=== PATIENT | male | born 1980 | race American Indian/Alaskan Native ===

== ENCOUNTER 2016-12-04 11:15 | Emergency (ER) | payer OTHER ==
[2016-12-04 12:39] LABS: Basophils % (Auto) 0.5 % (0.0-1.8); Eosinophils % (Auto) 0.6 % (0.0-4.3); Mean Corpuscular HGB Conc 31 % (32-34); Mean Corpuscular Volume 78 fl (84-94); Platelet Count 172 K/mm3 (140-440); Red Blood Count 5.49 M/mm3 (3.65-5.03); Red Cell Distribution Width 14.2 % (13.2-15.2); White Blood Count 4.9 K/mm3 (4.5-11.0)
[2016-12-04 12:42] LABS: Hematocrit 42.5 % (35.5-45.6); Hemoglobin 13.2 gm/dl (11.8-15.2); Mean Corpuscular Hemoglobin 24 pg (28-32)
[2016-12-04 13:02] LABS: Anion Gap 14 mmol/L; Blood Urea Nitrogen 12 mg/dL (9-20); Calcium 9.2 mg/dL (8.4-10.2); Carbon Dioxide 27 mmol/L (22-30); Chloride 104.4 mmol/L (98-107); Glucose 87 mg/dL (75-100); Potassium 3.8 mmol/L (3.6-5.0); Sodium 142 mmol/L (137-145)
[2016-12-04 13:23] LABS: Urine Drugs of Abuse Note Disclamer
[2016-12-04 13:37] LABS: Bilirubin,Urine NEG (Negative); Blood,Urine NEG (Negative); Ketones,Urine NEG (Negative); Leukocyte Esterase,Urine NEG (Negative); Mucus,Urine FEW /HPF; Nitrite,Urine NEG (Negative); Protein,Urine <15 mg/dL mg/dL (Negative)
[2016-12-04] MEDS ORDERED: FIORICET PO ONE (20:00)
[2016-12-04] MEDS ORDERED: NORCO 10/325 PO ONE (20:00)
--- NOTE | 2016-12-04 20:43 | XRay Report ---
FINAL REPORT EXAM: XR CHEST 1V AP HISTORY: sob TECHNIQUE: Single-view chest PRIORS: None. FINDINGS: The left costophrenic angle is cropped from the topography of the image.No focal consolidations are seen in the lungs.The cardiomediastinal silhouette is within normal limits for size and contour. No acute osseous abnormality is identified. IMPRESSION: 1. No definite radiographic evidence of acute cardiopulmonary disease. 2. No focal infiltrate is identified.
--- NOTE | 2016-12-04 21:26 | Emergency Department Report ---
ED General Adult HPI - General Chief complaint: Pain General Stated complaint: WEAKNESS/MIGRAINES/TATYANA Time Seen by Provider: 12/04/16 19:52 Source: patient Mode of arrival: Ambulatory Limitations: No Limitations - History of Present Illness Initial comments: Patient is a 36-year-old male with no significant past medical history who presents with migraines and body aches. Patient states that symptoms have been going on for a total of 2 weeks. His headache is located on the front portion of his head noise makes symptoms worse quite makes it better. He states that his headaches similar to the migraines he has had in the past. The migraine is an 8 out of 10 and is constant it is a throbbing-like pain. Patient states that he's been having shortness of breath with exertion. And low-grade temperature. Severity scale (0 -10): 10 - Related Data Previous Rx's Medication Instructions Recorded Last Taken Type Cyclobenzaprine [Flexeril] 10 mg PO TID PRN #12 tablet 03/01/13 Unknown Rx Hydrocodone Bit/Acetaminophen 1 each PO Q4-6H #12 tablet 03/01/13 Unknown Rx [Lortab 5-500 Tablet] Ibuprofen [Motrin] 800 mg PO TID PRN #25 tablet 03/01/13 Unknown Rx Butalb/Acetamin/Caff 50-325-40 1 tab PO Q6HR PRN #30 tab 12/04/16 Unknown Rx [Fioricet] Allergies Allergy/AdvReac Type Severity Reaction Status Date / Time No Known Allergies Allergy Unverified 03/01/13 01:38 ED Review of Systems ROS: Stated complaint: WEAKNESS/MIGRAINES/TATYANA Other details as noted in HPI Constitutional: denies: chills, fever Eyes: denies: eye pain, eye discharge, vision change ENT: throat pain Respiratory: SOB with exertion. denies: cough, shortness of breath, wheezing Cardiovascular: denies: chest pain, palpitations Endocrine: no symptoms reported Gastrointestinal: denies: abdominal pain, nausea, diarrhea Genitourinary: denies: urgency, dysuria Musculoskeletal: myalgia. denies: back pain, joint swelling, arthralgia Skin: denies: rash, lesions Neurological: headache Psychiatric: denies: anxiety, depression Hematological/Lymphatic: denies: easy bleeding, easy bruising ED Past Medical Hx - Past Medical History Hx Hypertension: No Hx CVA: No Hx Heart Attack/AMI: No Hx Congestive Heart Failure: No Hx Diabetes: No Hx Deep Vein Thrombosis: No Hx Pulmonary Embolism: No Hx GERD: No Hx Liver Disease: No Hx Renal Disease: No Hx Sickle Cell Disease: No Hx Arthritis: No Hx Headaches / Migraines: No Hx Seizures: No Hx Kidney Stones: No Hx Psychiatric Treatment: No Hx Asthma: No Hx COPD: No Hx Tuberculosis: No Hx Dementia: No Hx HIV: No Additional medical history: anemia - Surgical History Hx Coronary Stent: No Hx Open Heart Surgery: No Hx Pacemaker: No Hx Internal Defibrillator: No Hx Cholecystectomy: No Hx Appendectomy: No Hx Breast Surgery: No - Social History Smoking Status: Current Every Day Smoker - Medications Home Medications: Home Medications Medication Instructions Recorded Confirmed Last Taken Type Cyclobenzaprine [Flexeril] 10 mg PO TID PRN #12 tablet 03/01/13 Unknown Rx Hydrocodone Bit/Acetaminophen 1 each PO Q4-6H #12 tablet 03/01/13 Unknown Rx [Lortab 5-500 Tablet] Ibuprofen [Motrin] 800 mg PO TID PRN #25 tablet 03/01/13 Unknown Rx Butalb/Acetamin/Caff 50-325-40 1 tab PO Q6HR PRN #30 tab 12/04/16 Unknown Rx [Fioricet] ED Physical Exam - General Limitations: No Limitations General appearance: alert, in no apparent distress - Head Head exam: Present: atraumatic, normocephalic - Eye Eye exam: Present: normal appearance - ENT ENT exam: Present: mucous membranes moist - Neck Neck exam: Present: normal inspection - Respiratory Respiratory exam: Present: normal lung sounds bilaterally. Absent: respiratory distress - Cardiovascular Cardiovascular Exam: Present: regular rate, normal rhythm. Absent: systolic murmur, diastolic murmur, rubs, gallop - GI/Abdominal GI/Abdominal exam: Present: soft, normal bowel sounds - Rectal Rectal exam: Present: deferred - Extremities Exam Extremities exam: Present: normal inspection - Back Exam Back exam: Present: normal inspection - Neurological Exam Neurological exam: Present: alert, oriented X3 - Psychiatric Psychiatric exam: Present: normal affect, normal mood - Skin Skin exam: Present: warm, dry, intact, normal color. Absent: rash ED Course Vital Signs 08/12/17 08/12/17 08/12/17 12:07 20:25 20:30 Temperature 98.6 F Pulse Rate 75 73 Respiratory 20 33 H Rate Blood Pressure 117/71 117/75 122/66 O2 Sat by Pulse 100 98 Oximetry 12/04/16 12/04/16 12/04/16 20:40 20:50 21:00 Temperature Pulse Rate 66 72 64 Respiratory 16 11 L 17 Rate Blood Pressure 122/66 123/62 117/75 O2 Sat by Pulse 98 99 97 Oximetry 12/04/16 21:15 Temperature Pulse Rate Respiratory 20 Rate Blood Pressure O2 Sat by Pulse 98 Oximetry - Reevaluation(s) Reevaluation #1: 12/04/16 21:26 Patient has received this medication and his laboratory results are within normal limits. I will send patient home. Reevaluation #2: 12/04/16 21:37 Patient was concerned for sexually-transmitted diseases. Discussed and I will treat him empirically for Rocephin and gonorrhea infection. Discussed that patient will need to go to health clinic to get testing for HIV, syphilis and other sexually transmitted diseases. Patient verbalized understanding. Discharged nonverbal discharge instructions were given ED Medical Decision Making - Lab Data Result diagrams: 12/04/16 12:27 12/04/16 12:27 Lab Results 12/04/16 12/04/16 12/04/16 Range/Units 12:27 12:27 13:11 WBC 4.9 (4.5-11.0) K/mm3 RBC 5.49 H (3.65-5.03) M/mm3 Hgb 13.2 (11.8-15.2) gm/dl Hct 42.5 (35.5-45.6) % MCV 78 L (84-94) fl MCH 24 L (28-32) pg MCHC 31 L (32-34) % RDW 14.2 (13.2-15.2) % Plt Count 172 (140-440) K/mm3 Lymph % (Auto) 28.9 (13.4-35.0) % Madison % (Auto) 10.6 H (0.0-7.3) % Eos % (Auto) 0.6 (0.0-4.3) % Baso % (Auto) 0.5 (0.0-1.8) % Lymph # 1.4 (1.2-5.4) K/mm3 Madison # 0.5 (0.0-0.8) K/mm3 Eos # 0.0 (0.0-0.4) K/mm3 Baso # 0.0 (0.0-0.1) K/mm3 Seg Neutrophils % 59.4 (40.0-70.0) % Seg Neutrophils # 2.9 (1.8-7.7) K/mm3 Sodium 142 (137-145) mmol/L Potassium 3.8 (3.6-5.0) mmol/L Chloride 104.4 (98-107) mmol/L Carbon Dioxide 27 (22-30) mmol/L Anion Gap 14 mmol/L BUN 12 (9-20) mg/dL Creatinine 1.0 (0.8-1.5) mg/dL Estimated GFR > 60 ml/min BUN/Creatinine Ratio 12.00 % Glucose 87 (75-100) mg/dL Calcium 9.2 (8.4-10.2) mg/dL Urine Color Yellow (Yellow) Urine Turbidity Clear (Clear) Urine pH 6.0 (5.0-7.0) Ur Specific Altus 1.026 (1.003-1.030) Urine Protein <15 mg/dl (Negative) mg/dL Urine Glucose (UA) Neg (Negative) mg/dL Urine Ketones Neg (Negative) mg/dL Urine Blood Neg (Negative) Urine Nitrite Neg (Negative) Urine Bilirubin Neg (Negative) Urine Urobilinogen 4.0 (<2.0) mg/dL Ur Leukocyte Esterase Neg (Negative) Urine WBC (Auto) 1.0 (0.0-6.0) /HPF Urine RBC (Auto) 2.0 (0.0-6.0) /HPF Urine Mucus Few /HPF Urine Opiates Screen Urine Methadone Screen Ur Barbiturates Screen Ur Phencyclidine Scrn Ur Amphetamines Screen U Benzodiazepines Scrn Urine Cocaine Screen U Marijuana (THC) Screen Drugs of Abuse Note 12/04/16 Range/Units 13:11 WBC (4.5-11.0) K/mm3 RBC (3.65-5.03) M/mm3 Hgb (11.8-15.2) gm/dl Hct (35.5-45.6) % MCV (84-94) fl MCH (28-32) pg MCHC (32-34) % RDW (13.2-15.2) % Plt Count (140-440) K/mm3 Lymph % (Auto) (13.4-35.0) % Madison % (Auto) (0.0-7.3) % Eos % (Auto) (0.0-4.3) % Baso % (Auto) (0.0-1.8) % Lymph # (1.2-5.4) K/mm3 Madison # (0.0-0.8) K/mm3 Eos # (0.0-0.4) K/mm3 Baso # (0.0-0.1) K/mm3 Seg Neutrophils % (40.0-70.0) % Seg Neutrophils # (1.8-7.7) K/mm3 Sodium (137-145) mmol/L Potassium (3.6-5.0) mmol/L Chloride (98-107) mmol/L Carbon Dioxide (22-30) mmol/L Anion Gap mmol/L BUN (9-20) mg/dL Creatinine (0.8-1.5) mg/dL Estimated GFR ml/min BUN/Creatinine Ratio % Glucose (75-100) mg/dL Calcium (8.4-10.2) mg/dL Urine Color (Yellow) Urine Turbidity (Clear) Urine pH (5.0-7.0) Ur Specific Altus (1.003-1.030) Urine Protein (Negative) mg/dL Urine Glucose (UA) (Negative) mg/dL Urine Ketones (Negative) mg/dL Urine Blood (Negative) Urine Nitrite (Negative) Urine Bilirubin (Negative) Urine Urobilinogen (<2.0) mg/dL Ur Leukocyte Esterase (Negative) Urine WBC (Auto) (0.0-6.0) /HPF Urine RBC (Auto) (0.0-6.0) /HPF Urine Mucus /HPF Urine Opiates Screen Presumptive negative Urine Methadone Screen Presumptive negative Ur Barbiturates Screen Presumptive negative Ur Phencyclidine Scrn Presumptive negative Ur Amphetamines Screen Presumptive negative U Benzodiazepines Scrn Presumptive negative Urine Cocaine Screen Presumptive negative U Marijuana (THC) Screen Presumptive positive Drugs of Abuse Note Disclamer - Radiology Data Radiology results: report reviewed, image reviewed X-ray shows no acute pulmonary infiltrate and no acute cardiopulmonary disease. - Medical Decision Making Chief medical diagnosis: Viral syndrome Differential medical diagnoses migraine headache, sinus headache, tension headache CBC, CMP, chest x-ray and oral analgesic medications. Given patient's clinical symptoms seem most likely has a tension headache and/ or viral syndrome. Patient can go home and will up with a primary care physician. Critical care attestation.: If time is entered above; I have spent that time in minutes in the direct care of this critically ill patient, excluding procedure time. ED Disposition Clinical Impression: Viral syndrome, Musculoskeletal pain Disposition: TO HOME OR SELFCARE Is pt being admited?: No Does the pt Need Aspirin: No Condition: Stable Prescriptions: Butalb/Acetamin/Caff 50-325-40 [Fioricet] 1 tab PO Q6HR PRN #30 tab PRN Reason: Headache Referrals: PRIMARY CARE, [Primary Care Provider] - 3-5 Days NAYLA ARNOLD MD [Staff Physician] - 3-5 Days Time of Disposition: 21:40
[2016-12-04] MEDS ORDERED: ZITHROMAX PO ONE (21:36)
[2016-12-04] MEDS ORDERED: XYLOCAINE 1% MPF 5 mL INFILTRATI ONE (21:36)
[2016-12-04] MEDS ORDERED: ROCEPHIN IM ONE (21:36)
[2016-12-04 22:57] VITALS: BP 122/65
== END 2016-12-04 22:57 | disposition home or self-care (01) ==
LOC: ED 11:15
DX: B34.9 Viral infection, unspecified (principal); F17.210 Nicotine dependence, cigarettes, uncomplicated
CPT/HCPCS: 36415; 71010; 80048; 80307; 81001; 85025; 96372; 99284; J0696

== ENCOUNTER 2020-02-14 16:39 | Emergency (ER) | payer SELFPAY ==
[2020-02-14 17:28] VITALS: BP 135/92
--- NOTE | 2020-02-14 19:41 | Emergency Department Report ---
Chief Complaint: Urogenital-Male Stated Complaint: PAINS Time Seen by Provider: 02/14/20 19:40 - HPI History of Present Illness: Patient is a 40-year-old male presents emergency room complaints of white penile discharge that began yesterday. He has associated dysuria. He denies any fever, vomiting, chills, diarrhea, pain or swelling in the testicles, abdominal pain, hematuria, difficulty urinating, urinary frequency. He denies any past medical history. No allergies to medications. He states that he did have unprotected intercourse. Vitals are normal On exam: Non toxic appearing, no acute distress atraumatic, normocephalic normal appearance of the eyes, EOMI, no periorbital edema moist mucus membranes No respiratory distress or accessory muscle use A&O x4, ambulating without difficulty Patient is presenting with STD-like symptoms He denies any fever, vomiting, chills, diarrhea, pain or swelling in the testicles, abdominal pain, hematuria, difficulty urinating, urinary frequency. Patient be referred to the health department in the clinic in order to receive a full STD panel Discussed return precautions with patient Patient given the appropriate resources Medical screening examination performed and there is no threat to life or limb at this time - Exam Vital Signs: Vital Signs 02/14/20 17:26 Temperature 98.0 F Pulse Rate 82 Respiratory 18 Rate Blood Pressure 135/92 [Right] O2 Sat by Pulse 99 Oximetry MSE screening note: Focused history and physical exam performed. Due to findings the following was ordered: ED Disposition for MSE Clinical Impression: Concern about STD in male without diagnosis Disposition: Z- MED SCREENING EXAM-LEFT Is pt being admited?: No Does the pt Need Aspirin: No Condition: Stable Instructions: Sexually Transmitted Diseases (ED), Safe Sex (ED) Additional Instructions: Please follow-up with the clinic or the health department in order to have a full STD panel. Please have any partner tested and treated as well. Avoid sexual intercourse. Return to emergency room for any new or worsening symptoms. [employer] Address: [address] [place] [id number] Referrals: [facility] [Outside] - 2-3 Days Time of Disposition: 19:42 Print Language: SLOVENIAN
== END 2020-02-14 21:00 | disposition left against medical advice (07) ==
LOC: ED 16:39
DX: Z20.2 Contact with and (suspected) exposure to infections with a predominantly sexual mode of transmission (principal); Z53.21 Procedure and treatment not carried out due to patient leaving prior to being seen by health care provider

== ENCOUNTER 2020-08-13 09:01 | Emergency (ER) | payer SELFPAY ==
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
[2020-08-13 11:02] VITALS: BP 133/82
--- NOTE | 2020-08-13 14:12 | XRay Report ---
LEFT SHOULDER 3 VIEWS INDICATION / CLINICAL INFORMATION: Left shoulder pain after fall. COMPARISON: None available. FINDINGS: BONES and JOINT(S): No acute fracture or subluxation. No significant arthritis. SOFT TISSUES: No significant abnormality. ADDITIONAL FINDINGS: None. IMPRESSION: 1. No acute findings. Signer Name: Edgar Gabriel MD Signed: 08/13/2020 10:43 AM Workstation Name: [id number]
--- NOTE | 2020-08-13 14:12 | XRay Report ---
LEFT WRIST 3 VIEWS INDICATION / CLINICAL INFORMATION: Left wrist pain after fall. COMPARISON: None available. FINDINGS: BONES and JOINT(S): No acute fracture or subluxation. No significant arthritis. SOFT TISSUES: No significant abnormality. ADDITIONAL FINDINGS: None. IMPRESSION: 1. No acute findings. Signer Name: Edgar Gabriel MD Signed: 08/13/2020 10:43 AM Workstation Name: [id number]
== END 2020-08-13 12:41 | disposition home or self-care (01) ==
LOC: ED 09:01
DX: S66.912A Strain of unspecified muscle, fascia and tendon at wrist and hand level, left hand, initial encounter (principal); S46.912A Strain of unspecified muscle, fascia and tendon at shoulder and upper arm level, left arm, initial encounter; Z79.899 Other long term (current) drug therapy; V89.9XXA Person injured in unspecified vehicle accident, initial encounter; Y93.89 Activity, other specified; Y92.89 Other specified places as the place of occurrence of the external cause; Y99.8 Other external cause status
CPT/HCPCS: 99283

== ENCOUNTER 2021-09-20 16:52 | Emergency (ER) | payer OTHER ==
[2021-09-20 17:00] VITALS: BP 110/75
== END 2021-09-20 19:53 | disposition left against medical advice (07) ==
LOC: ED 16:52
DX: Z04.1 Encounter for examination and observation following transport accident (principal); Z53.21 Procedure and treatment not carried out due to patient leaving prior to being seen by health care provider; V89.2XXA Person injured in unspecified motor-vehicle accident, traffic, initial encounter; Y93.89 Activity, other specified; Y92.89 Other specified places as the place of occurrence of the external cause; Y99.8 Other external cause status